=== PATIENT | male | born 1955 | race Hispanic/Latino ===

== ENCOUNTER 2019-12-24 09:32 | Inpatient (IN) | payer OTHER ==
[2019-12-24] MEDS ORDERED: Morphine 4 MG/ML VIAL ONE (10:31)
--- NOTE | 2019-12-24 10:49 | RAD ---
2 VIEWS LEFT HIP: Date: 12/24/2019 COMPARISON: None. HISTORY: Left hip pain after a fall coming down a ladder. FINDINGS: There appears to be slight impaction of the left femoral neck concerning for an impacted left femoral neck fracture. No dislocation is seen. IMPRESSION: Possible impacted left femoral neck fracture. POS: [facility]
--- NOTE | 2019-12-24 10:50 | RAD ---
SINGLE VIEW PELVIS: Date: 12/24/2019 HISTORY: Fall coming down a ladder with left hip pain. FINDINGS: Single view of the pelvis shows possible impaction of the left femoral neck which could represent an impacted femoral neck fracture. No degenerative changes are seen in either hip. No pelvic fractures a re seen. IMPRESSION: Possible impacted left femoral neck fracture. POS: [facility]
--- NOTE | 2019-12-24 10:58 | RAD ---
PORTABLE CHEST 1 VIEW: Date: 12/24/2019 Time: 1020 hours HISTORY: Fall, chest pain. FINDINGS: The heart size is borderline. The lungs are expanded without lobar consolidation, pneumothoraces, fra nk pulmonary edema, or pleural effusions. IMPRESSION: No acute process. POS: [facility]
[2019-12-24 11:26] LABS: #Eosinphils 0.2 thou/uL (0.0-0.7); #Lymphocytes 1.7 thou/uL (1.20-3.40); #Monocytes 0.5 thou/uL (0.11-0.59); #Neutrophils 6.6 thou/uL (1.40-6.50); %Basophils 0.3 % (0.0-1.0); %Eosinophils 2.5 % (0.0-10.0); %Lymphocytes 18.5 % (21.0-51.0); %Monocytes 5.6 % (0.0-10.0); %Neutrophils 73.1 % (42.0-75.0); Hemoglobin 13.5 g/dL (14.0-18.0); Mean Corpuscular HGB CONC 32.3 g/dL (32.0-36.0); Mean Corpuscular Volume 89.8 fL (78.0-98.0); Mean Platelet Volume 9.1 fL (7.4-10.4); Platelet Count 150 thou/uL (130-400); RBC Distribution Width 12.9 % (11.5-14.5); Red Blood Cell (RBC) Count 4.65 mill/uL (4.70-6.10)
[2019-12-24 11:30] LABS: PTT 28.5 SEC (22.9-36.1); Prothrombin Time 12.9 sec (12.0-14.7)
[2019-12-24 11:50] LABS: ALT (SGPT) 37 U/L (8-55); AST (SGOT) 30 U/L (5-34); Albumin 3.8 g/dL (3.4-4.8); Alkaline Phosphatase 80 U/L (40-110); Anion Gap 13 mmol/L (10-20); BUN (Urea Nitrogen) 16 mg/dL (8.4-25.7); Bilirubin, Total 0.6 mg/dL (0.2-1.2); Calc. Creatinine Clearance 0 mL/min (70-130); Calcium 9.2 mg/dL (7.8-10.44); Carbon Dioxide 29 mmol/L (23-31); Chloride 102 mmol/L (98-107); Estimated GFR-MDRD 84; Globulin 3.6 g/dL (2.4-3.5); Glucose 127 mg/dL (80-115); Potassium 4.5 mmol/L (3.5-5.1); Protein, Total 7.4 g/dL (5.8-8.1); Sodium 139 mmol/L (136-145)
[2019-12-24] MEDS ORDERED: Morphine 2 MG/ML SYRINGE SLOW IVP PRN (12:15)
[2019-12-24] MEDS ORDERED: TETANUS AND DIPHTHERIA TOX/PF 0.5 ML DISP.SYRIN IM ONE (12:15)
[2019-12-24] MEDS ORDERED: Ondansetron ODT 4 MG TAB PO PRN (12:15)
[2019-12-24] MEDS ORDERED: Dextrose 50% Abboject 50 ML SYRINGE SLOW IVP PRN (12:15)
[2019-12-24] MEDS ORDERED: Ondansetron PF 4 MG/2 ML Vial IVP PRN (12:15)
[2019-12-24] MEDS ORDERED: Dextrose 5% in Water 1,000 ML IV PRN (12:15)
[2019-12-24] MEDS ORDERED: hydrALAZINE 20 MG/ML VIAL SLOW IVP PRN (12:15)
[2019-12-24] MEDS ORDERED: Ketorolac Tromethamine 30 MG/ML VIAL ONE (12:27)
[2019-12-24] MEDS ORDERED: Ketorolac Tromethamine 30 MG/ML VIAL IVP SCH (12:30)
[2019-12-24 12:40] LABS: Magnesium 1.9 mg/dL (1.6-2.6); Phosphorus 2.9 mg/dL (2.3-4.7)
[2019-12-24 12:44] LABS: Acetaminophen Less than 6.0 mcg/mL (10.0-30.0); Alcohol Less than 10 mg/dL (Less than 10); Salicylate Less than 8.0 mg/dL (15.0-30.0)
[2019-12-24 13:09] LABS: Amphetamine Not Detected (NotDetected); Barbiturates Screen Not Detected (NotDetected); Benzodiazepine Screen Not Detected (NotDetected); Cocaine Metabolite Screen Not Detected (NotDetected); Medtox Control Line Valid? VALID (VALID); Medtox Reader # READER 1; Methadone Not Detected (NotDetected); Methamphetamine Not Detected (NotDetected); Opiate Screen Detected (NotDetected); Oxycodone Screen Not Detected (NotDetected); Phencyclidine (PCP) Not Detected (NotDetected); THC/Cannabinoid Screen Not Detected (NotDetected); Tricyclic Screen Not Detected (NotDetected)
[2019-12-24] MEDS: traMADol HCl 50 MG TAB PO SCH ×2 (13:15→18:26)
[2019-12-24] MEDS ORDERED: CEFAZOLIN 2 GM in Premix Bag 1 BAG IVPB SCH (13:15)
[2019-12-24 13:29] VITALS: BMI 39.4
[2019-12-24] MEDS: Sodium Chloride 0.9% 1,000 ML IV SCH (14:09)
[2019-12-24] MEDS: Acetaminophen 500 MG TAB PO SCH ×2 (14:19→18:26)
--- NOTE | 2019-12-24 14:26 | CON ---
DATE OF CONSULTATION: This is Michael Corral PA-C dictating a report for Alok Kim MD. HISTORY OF PRESENT ILLNESS: We were asked by the ER to see the patient. The patient is over here from [place] working. 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 He had significant pain on that left hip. He denies any other injuries, but he did sustain a fracture to the femoral neck. The patient is active. Other than some hypertension and cholesterol problems, he is healthy. He gets seen by a physician quarterly due to his job and other than the above-mentioned problems, he is a healthy individual. Unfortunately, states this is his first time in the hospital, first time fracture, and probably first-time surgery. Denies any numbness and tingling down the leg and he is moving that left lower extremity pretty well remarkably. He is lying on that left lower extremity, which feels more comfortable for him. PAST MEDICAL HISTORY: Hypertension and cholesterol. 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 No alcohol, nicotine, or illicit drug products whatsoever. ALLERGIES: PENICILLIN. CURRENT MEDICATIONS: He is on three hypertension medications and anticholesterol medication. I do not have this list at this time. FAMILY HISTORY: Noncontributory. PAST SURGICAL HISTORY: None. REVIEW OF SYSTEMS: He is a healthy individual. Denies any chest pain, shortness of breath, bowel or bladder problems, any other aches and pains other than the left hip currently. He does have some arthritic problems, but other than that, rest of review of systems negative. PHYSICAL EXAMINATION: GENERAL: Well-nourished, well-developed male, alert, pleasant, in no acute distress. Speech clear. Affect pleasant. Answers questions appropriately. He is alert and oriented x3. HEENT: Normal exam. Face symmetric. Tongue midline. NECK: Supple. Trachea midline. EXTREMITIES: Upper extremities, equal size, shape, and symmetry. Normal bulk and tone. Storm Door Maker strengths, movement, and sensations are equal. Respirations 16. No acute distress. PELVIS: No pain with rocking until I get down that left hip area. Again, he is lying on his left side, but he is able to move that left lower extremity. It is minutely shortened compared to the right, but he is able to move it fairly well. Sensations are intact to the both lower extremities as are DP PT pulses are equal. ASSESSMENT: 1. Fall. 2. Sustained left hip fracture. PLAN: The patient will probably need a hemiarthroplasty and I will discuss the x-ray findings with Dr. Kim and I let the patient know he can eat, we will probably end up doing this tomorrow as he would be quite late on the surgical schedule, the patient is amenable to this. I went over the risks and benefits of any surgical procedure with the patient bleeding, infection, scar tissue, blood clots, pulmonary vasculature in the leg, stroke, heart attack. Otherwise, he understands the surgeries, has been discussed the hemiarthroplasty. His questions and concerns have been answered and he is amenable to go forth with surgery. We will get him consented on the surgery schedule and his is not here yet, but if she has further questions before we do surgery, we will be happy to sit down and talk with them and address their questions and/or concerns. Job ID: [id number]
[2019-12-24] MEDS ORDERED: Ibuprofen 600 MG TAB PO PRN (16:00)
--- NOTE | 2019-12-24 16:10 | HP ---
. CONSULTS: Orthopedic Surgery, Dr. Kim. CHIEF COMPLAINT: Fall from ladder approximately two steps with left hip pain. HISTORY OF PRESENT ILLNESS: This is a 64-year-old gentleman who was at work when he was climbing down a ladder in which he thought he was at the bottom of the ladder. The patient lost his balance falling two steps high landing on his buttocks. The patient was also complained of left hip pain and was not able to ambulate after falling. The patient denies hitting his head or losing consciousness. The patient denies any other pain or injuries. The patient does have a small abrasion to his left elbow, but denies any pain. The patient was evaluated in the emergency room and was found to have a left femoral neck fracture. The patient was given a tetanus injection, morphine and Toradol for pain in the emergency room. REVIEW OF SYSTEMS: A 10-point review of systems is negative unless otherwise indicated in the above HPI. MEDICAL HISTORY: Hypertension. SURGICAL HISTORY: Denies. ALLERGIES: PENICILLIN. MEDICATIONS: 1. Amlodipine 10 mg p.o. daily. 2. Atorvastatin 40 mg p.o. at bedtime. 3. p.o. Daily. 4. Bystolic 10 mg p.o. daily. SOCIAL HISTORY: The patient is , lives in [place], former smoker for approximately 25 years. The patient quit approximately three years ago, denies any illicit drug use, and denies any alcohol use. PHYSICAL EXAMINATION: VITAL SIGNS: Temperature 97.9, pulse 61, respirations 18, SpO2 of 95% on room air, blood pressure 120/66. GENERAL: Well-appearing elderly male, lying in hospital bed, in no acute distress. HEENT: Head is atraumatic and normocephalic. Pupils are equal, midface stable, mucous membranes are moist, denies neck pain, normal range of motion of neck, trachea is midline. RESPIRATORY: Equal chest rise and fall. No wheezing, rales or rhonchi. Chest is atraumatic. ABDOMEN: Soft, nontender, nondistended. Active bowel sounds. PELVIS: Mild tenderness to the left hip. CARDIAC: Regular rate and regular rhythm. No murmurs. No pedal edema. EXTREMITIES: Moves all extremities. Small abrasion to left elbow, no obvious deformity. Normal range of motion, distal pulses 2+ in all extremities, pain to the left thigh and hip. NEUROLOGIC: No focal deficits. GCS 15. LABORATORY DATA: WBC 9.0, RBCs 4.65, hemoglobin 13.5, hematocrit 41.7, platelets 150. PT 12.9, INR 1.0, APTT 28.5. Sodium 139, potassium 4.5, chloride 102, carbon dioxide 29. BUN 16, creatinine 0.91, estimated GFR 84, glucose 127, calcium 9.2, phosphorus 2.9, magnesium 1.9. AST 30, ALT 37, alkaline phos 80. Drug screen positive for opioids, patient was given morphine before urine drug screen collection, plasma alcohol is less than 10. DIAGNOSTICS: 1. Pelvis x-ray, impression, possible impacted left femoral neck fracture, no pelvic fractures are seen. 2. Left hip x-ray, impression, possible impacted left femoral neck fracture. 3. Chest x-ray, impression, no acute cardiopulmonary process. IMPRESSION: 1. Status post fall from ladder approximately 2 feet. 2. Impacted left femoral neck fracture. 3. Acute traumatic pain. 4. History of hypertension. PLAN: We will admit the patient to the surgical floor. The patient will be placed on a regular diet and then n.p.o. after midnight as Orthopedic Surgery plans to take the patient to the OR for repair of his left hip tomorrow. The patient will be placed on IV maintenance fluids at midnight, normal saline at 120/hour. Pain control and bowel regimen. We will restart the patient's home hypertensive medications with hold parameters. We will have PT and OT evaluate and treat postop tomorrow. We will place a rehab screen as the patient may likely need inpatient rehab. The plan was discussed with Dr. Cheema, who agrees. Job ID: [id number]
[2019-12-24] MEDS: Senokot S 8.6-50 MG TAB PO SCH (19:47)
--- NOTE | 2019-12-25 01:43 | PRG ---
DATE OF SERVICE: 12/24/2019 SUBJECTIVE: The patient was seen this evening, lying in bed, with no signs of acute distress. He reported his pain is well controlled. He is tolerating a diet. He is n.p.o. at midnight for OR tomorrow with Dr. Kim. OBJECTIVE: VITAL SIGNS: Temperature 99.3, pulse 70, respirations 16, oxygen saturation 95% on room air, blood pressure 122/64. GENERAL: Well-appearing middle-aged male, lying in bed with no signs of acute distress. PULMONARY: Equal chest rise and fall. Clear breath sounds bilaterally. No signs of acute respiratory distress. ASSESSMENT: 1. Status post fall from ladder. 2. Left femoral neck fracture. 3. History of hypertension. PLAN: Continue current diet. N.p.o. at midnight. Normal saline 120 an hour. The patient is pending the OR tomorrow with Dr. Kim for fixation of his left femoral neck fracture. Postoperatively, he will work with Physical and Occupational Therapy and need placement in acute rehab facility. Job ID: [id number]
[2019-12-25] MEDS: Acetaminophen 500 MG TAB PO SCH ×4 (02:18→17:54)
[2019-12-25] MEDS: traMADol HCl 50 MG TAB PO SCH ×4 (02:18→17:55)
[2019-12-25 04:29] LABS: Hemoglobin 13.3 g/dL (14.0-18.0); Mean Corpuscular HGB CONC 32.4 g/dL (32.0-36.0); Mean Corpuscular Hemoglobin 29.8 pg (27.0-31.0); Mean Corpuscular Volume 91.8 fL (78.0-98.0); Mean Platelet Volume 9.5 fL (7.4-10.4); Platelet Count 138 thou/uL (130-400); RBC Distribution Width 12.9 % (11.5-14.5); Red Blood Cell (RBC) Count 4.48 mill/uL (4.70-6.10); White Blood Cell (WBC) Count 8.4 thou/uL (4.8-10.8)
[2019-12-25 04:30] LABS: Band 11 % (5-11); Eosinophils 4 % (0-10); Lymphocytes 16 % (21-51); MDiff Complete? YES; Monocytes 5 % (0-10); Neutrophil 62 % (42-75); Platelet Morphology Comment Appears Adequate
[2019-12-25 04:42] LABS: Anion Gap 12 mmol/L (10-20); BUN (Urea Nitrogen) 19 mg/dL (8.4-25.7); Calc. Creatinine Clearance 154 mL/min (70-130); Calcium 8.2 mg/dL (7.8-10.44); Carbon Dioxide 25 mmol/L (23-31); Chloride 104 mmol/L (98-107); Estimated GFR-MDRD Greater than 90; Glucose 113 mg/dL (80-115); Magnesium 1.9 mg/dL (1.6-2.6); Phosphorus 4.1 mg/dL (2.3-4.7); Potassium 4.2 mmol/L (3.5-5.1); Sodium 137 mmol/L (136-145)
[2019-12-25] MEDS: Sodium Chloride 0.9% 1,000 ML IV SCH ×2 (08:47→15:54)
[2019-12-25] MEDS: Amlodipine 10 MG TAB PO SCH (08:49)
[2019-12-25] MEDS: Polyethylene Glycol 3350 17 GM Packet PO SCH (08:50)
[2019-12-25] MEDS: Senokot S 8.6-50 MG TAB PO SCH ×2 (08:50→19:54)
[2019-12-25] MEDS ORDERED: Nebivolol HCl 5 MG TAB PO SCH (09:00)
[2019-12-25] MEDS ORDERED: Fentanyl 100 MCG/2 ML VIAL ONE ×3 (13:16→16:19)
[2019-12-25] MEDS ORDERED: Levofloxacin 500 mg/D5W 100 ml Premix Bag ONE ×2 (13:29→13:32)
[2019-12-25] MEDS ORDERED: Ciprofloxacin 0.2% Otic 1 DROP CON ONE (13:29)
[2019-12-25] MEDS ORDERED: Clindamycin/D5W 900 MG in Premix Bag 1 BAG IVPB SCH (13:30)
[2019-12-25] MEDS ORDERED: Clindamycin/D5W 900 mg/50 ml Premix Bag ONE (13:32)
[2019-12-25] MEDS ORDERED: Glycopyrrolate 0.2 MG/ML 5 ML SYRINGE ONE (15:29)
[2019-12-25] MEDS ORDERED: PROPOFOL 200 MG/20 ML VIAL ONE (15:29)
[2019-12-25] MEDS ORDERED: Dexamethasone 20 MG/5 ML VIAL ONE (15:29)
[2019-12-25] MEDS ORDERED: Rocuronium Bromide 10 MG/ML (10ML VIAL) ONE (15:29)
[2019-12-25] MEDS ORDERED: PHENYLEPHRINE-NS 100 MCG/ML 10 ML SYRINGE ONE (15:29)
[2019-12-25] MEDS ORDERED: Ondansetron PF 4 MG/2 ML Vial ONE (15:29)
[2019-12-25] MEDS ORDERED: EPHEDRINE 25 MG/5 ML SYRINGE ONE (15:29)
[2019-12-25] MEDS ORDERED: Promethazine HCl 25 MG/ML VIAL IM PRN (15:38)
[2019-12-25] MEDS ORDERED: Promethazine HCl 25 MG/ML VIAL SLOW IVP PRN (15:38)
[2019-12-25] MEDS ORDERED: Ondansetron HCl/PF 4 MG/2 ML Vial IVP PRN (15:38)
--- NOTE | 2019-12-25 15:52 | EKG ---
Test Reason : CP Blood Pressure : / mmHG Vent. Rate : 059 BPM Atrial Rate : 059 BPM P-R Int : 160 ms QRS Dur : 100 ms QT Int : 458 ms P-R-T Axes : 070 007 032 degrees QTc Int : 453 ms Sinus bradycardia Incomplete right bundle branch block Borderline ECG Confirmed by BRIGIDO MCGARRY DO ([id number]), editorial manager PENNY VALENTINO ([id number]) on 12/25/2019 3:51:36 PM Referred By: Confirmed By:BRIGIDO MCGARRY DO
[2019-12-25] MEDS: Clindamycin/D5W 900 MG in Premix Bag 1 BAG IVPB SCH ×2 (16:17→21:17)
--- NOTE | 2019-12-25 16:19 | RAD ---
LEFT HIP ONE VIEW: 12/25/19 HISTORY: Hip hemiarthroplasty. COMPARISON: Radiograph prior day. FINDINGS: Satisfactory appearance of the left hip hemiarthroplasty. IMPRESSION: Satisfactory postoperative appearance. POS: HOME
--- NOTE | 2019-12-25 16:20 | RAD ---
PELVIS ONE VIEW: 12/25/19 HISTORY: Left hip hemiarthroplasty. COMPARISON: Radiograph prior day. FINDINGS: Satisfactory postoperative left hip hemiarthroplasty. Obturator ring is intact. Expected postoperativ e gas and edema. IMPRESSION: Satisfactory postoperative appearance. POS: HOME
--- NOTE | 2019-12-25 16:47 | PRG ---
DATE OF SERVICE: 12/25/2019 SUBJECTIVE: Mr. 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 The patient sustained impacted left femoral neck fracture. He is awake and alert this morning, reporting adequate pain control. OBJECTIVE: VITAL SIGNS: Include blood pressure 116/65, pulse is 61, respiratory rate is 18, temperature 98.2 degrees Fahrenheit, and oxygen saturation 93% on room air. HEART: Reveals regular rate and rhythm. LUNGS: Clear to auscultation bilaterally. Breathing, regular and nonlabored. ABDOMEN: Soft, nontender, and nondistended. NEUROLOGIC: Reveals no focal deficits present. LABORATORY FINDINGS: Include a CBC with 8400 white blood cells, hemoglobin and hematocrit stable at 13.3 and 41.2 respectively. Platelet count is 138,000. Metabolic profile; sodium 137, potassium 4.2, chloride is 104, bicarb is 25, BUN 19, creatinine 0.82, glucose is 113, magnesium is 1.9, and phosphorus is 4.1. IMPRESSIONS: 1. Status post fall from a ladder. 2. Left hip fracture. 3. Acute hypomagnesemia. PLAN: Correct abnormal electrolytes. The patient is hemodynamically stable to proceed to surgery for repair of the hip fracture at the discretion of the Orthopedic Surgical Service. Job ID: [id number]
--- NOTE | 2019-12-25 22:54 | OP ---
DATE OF PROCEDURE: 12/25/2019 PROCEDURE PERFORMED: Left hip hemiarthroplasty. PREOPERATIVE DIAGNOSIS: Left femoral neck fracture. POSTOPERATIVE DIAGNOSIS: Left femoral neck fracture. COMPLICATIONS: None. ESTIMATED BLOOD LOSS: 150 mL. AIRPLANE RENTAL CLERK: Guerrero Linton PA-C IMPLANTS: DePuy bipolar hemiarthroplasty with a size 6 cemented stem, size +12 femoral head with a 49 mm bipolar shell. INDICATIONS FOR PROCEDURE: Mr. Suero is a 64-year-old male who fell from a ladder and fractured his left femoral neck. He had an impacted and shortened fracture. He was indicated for hemiarthroplasty of the hip after risks and benefits were reviewed. Alternatives of hemiarthroplasty were reviewed including total hip arthroplasty. He is aware that he may develop osteoarthritis of his acetabulum over time and may require revision to total hip arthroplasty in the future. He is also aware of instability, infection, pain, scarring, bleeding, nerve or vascular injury, DVT, PE, and others. He wanted to proceed. DESCRIPTION OF PROCEDURE: Mr. Suero was identified in the preoperative holding area. His correct extremity was marked. He was carried to the operating room. He was positioned supine. General anesthesia was induced. He was converted to the lateral decubitus position. At this point, we performed a posterior approach to the hip. We dissected down through the subcutaneous tissues to the fascia, which was opened. We then exposed the underlying short external rotators of the hip. We subperiosteally divided these from the proximal femur. There was obvious severely comminuted and displaced fracture. The fracture extended distally down to the lesser trochanter. The greater trochanter was fractured off the femoral shaft as well. We removed the femoral head and neck fragments. We cleared the acetabulum of bony material. We inspected the proximal femur at this point. We decided there was not enough stable bone to perform a press-fit stem. We decided to do a cemented stem at this point to ensure that there was stability of the hip. We then began reaming and broaching up to a size 6. We trialed off our size 6 stem. We then trialed with our +8.5 head. We decided to go up to a 12 head for leg length and stability. We removed our trial components. We thoroughly irrigated with copious lavage. We then placed our cement restrictor. At this point, we inserted our cement after mixing on the back table and placed our stem. We held the stem in an appropriate version until fully hardened. We then placed our final femoral head and bipolar shell. Again, we reduced the hip and took it through a range of motion. The hip was stable and there was a full leg length. Next, we thoroughly irrigated and repaired the greater trochanter with Ethibond sutures. #5 Ethibond sutures were used and passed through the bone in a [id number] fashion, restoring the alignment of the greater trochanter. Finally, we repaired the short external rotators in the capsule through drill holes in the proximal femur. At this point, we thoroughly irrigated with lavage. We then began closure. #2 Vicryl suture, 2-0 Vicryl suture, and syed were used. The patient was taken to the recovery room in good condition without complication. Job ID: [id number]
[2019-12-26] MEDS: traMADol HCl 50 MG TAB PO SCH ×4 (00:01→18:16)
[2019-12-26] MEDS: Acetaminophen 500 MG TAB PO SCH ×4 (00:01→18:16)
--- NOTE | 2019-12-26 00:20 | PRG ---
DATE OF SERVICE: 12/25/2019 SUBJECTIVE: The patient was seen this evening during rounds. He is postoperative day zero active fixation of a left femoral neck fracture. He reports pain is well controlled, voiding without difficulty. He is tolerating food. OBJECTIVE: VITAL SIGNS: Temperature 98.6, pulse 70, respirations 18, oxygen saturation 95% on 1 L nasal cannula, blood pressure 163/94. GENERAL: A well-appearing male, lying in bed with no signs of acute distress. PULMONARY: Equal chest rise and fall. No signs of acute respiratory distress. ASSESSMENT: 1. Status post fall from ladder. 2. Left femoral neck fracture, status post repair. 3. History of hypertension. PLAN: Continue current diet and pain regimen. Discontinue IV fluids. Restart home Bystolic with hold parameters. The patient to start working with Physical and Occupational Therapy tomorrow. We will continue to hold chemo, DVT prophylaxis today and consider starting it tomorrow after a repeat blood work in the morning. Job ID: [id number]
[2019-12-26 06:07] LABS: #Lymphocytes 0.9 thou/uL (1.20-3.40); #Monocytes 0.7 thou/uL (0.11-0.59); #Neutrophils 8.8 thou/uL (1.40-6.50); %Basophils 0.2 % (0.0-1.0); %Lymphocytes 8.5 % (21.0-51.0); %Monocytes 6.6 % (0.0-10.0); %Neutrophils 84.7 % (42.0-75.0); Hemoglobin 10.7 g/dL (14.0-18.0); Mean Corpuscular HGB CONC 33.1 g/dL (32.0-36.0); Mean Corpuscular Hemoglobin 29.9 pg (27.0-31.0); Mean Corpuscular Volume 90.4 fL (78.0-98.0); Mean Platelet Volume 9.3 fL (7.4-10.4); Platelet Count 122 thou/uL (130-400); RBC Distribution Width 12.7 % (11.5-14.5); Red Blood Cell (RBC) Count 3.57 mill/uL (4.70-6.10); White Blood Cell (WBC) Count 10.4 thou/uL (4.8-10.8)
[2019-12-26 06:30] LABS: Anion Gap 12 mmol/L (10-20); BUN (Urea Nitrogen) 16 mg/dL (8.4-25.7); Calc. Creatinine Clearance 150 mL/min (70-130); Calcium 7.7 mg/dL (7.8-10.44); Carbon Dioxide 28 mmol/L (23-31); Chloride 100 mmol/L (98-107); Estimated GFR-MDRD Greater than 90; Glucose 133 mg/dL (80-115); Magnesium 1.9 mg/dL (1.6-2.6); Phosphorus 4.6 mg/dL (2.3-4.7); Potassium 4.5 mmol/L (3.5-5.1); Sodium 135 mmol/L (136-145)
[2019-12-26] MEDS: Aspirin 81 mg Enteric Coated Tablet PO SCH ×2 (08:32→20:29)
[2019-12-26] MEDS: Amlodipine 10 MG TAB PO SCH (08:32)
[2019-12-26] MEDS: Nebivolol HCl 5 MG TAB PO SCH (08:33)
[2019-12-26] MEDS: Polyethylene Glycol 3350 17 GM Packet PO SCH (08:33)
[2019-12-26] MEDS: Cyclobenzaprine 10 MG TAB PO PRN ×2 (08:33→23:31)
[2019-12-26] MEDS: Senokot S 8.6-50 MG TAB PO SCH ×2 (08:35→20:28)
--- NOTE | 2019-12-26 17:58 | PRG ---
DATE OF SERVICE: 12/26/2019 SUBJECTIVE: The patient remains on the surgical floor. The patient is postop day 1 status post left hip hemiarthroplasty. The patient had no overnight events. The patient is able to walk with physical therapy using a walker. The patient's pain is well controlled at this time. The patient is tolerating a regular diet. The patient voices no concerns at this time. OBJECTIVE: VITAL SIGNS: Blood pressure 104/58, temperature 98.3, pulse 60, respirations 20, and SpO2 of 96% on room air. GENERAL: Well-appearing elderly male, awake and alert, in no distress, sitting up in the chair. HEENT: Head is atraumatic and normocephalic. RESPIRATORY: Good inspiratory and expiratory effort, respirations are even and nonlabored. ABDOMEN: Soft, nontender, and nondistended. EXTREMITIES: Moves all extremities, neurovascularly intact x4. Left hip dressing is clean, dry, and intact. NEUROLOGIC: No focal deficits. LABORATORY DATA: WBC 10.4, RBC 3.57, hemoglobin 10.7, hematocrit 32.2, and platelets 122. Sodium 135, potassium 4.5, chloride 100, BUN 16, creatinine 0.84, estimated GFR greater than 90, glucose 133, calcium 7.7, phosphorus 4.6, and magnesium 1.9. IMPRESSION: 1. Status post fall from ladder two steps. 2. Left hip fracture status post repair. PLAN: Continue physical and occupational therapy. Continue pain regimen. The patient will most likely be discharge home to [place] with his in the morning as long as his pain is continued to be well controlled. We will work on getting the patient outpatient physical therapy and a walker. Aspirin 81 mg b.i.d. for VTE prophylaxis. The patient was examined by Dr. Cheema during morning rounds. Job ID: [id number]
--- NOTE | 2019-12-27 01:58 | PRG ---
DATE OF SERVICE: 12/26/2019 SUBJECTIVE: The patient was seen this evening during rounds. He was resting comfortably and asleep with no signs of acute distress. Nursing reported no acute events. OBJECTIVE: VITAL SIGNS: Temperature 97.3, pulse 57, respirations 16, oxygen saturation 97% on room air, and blood pressure 135/72. ASSESSMENT: 1. Status post fall from ladder. 2. Left femoral neck fracture, status post repair. 3. History of hypertension. PLAN: Continue current diet and pain regimen. Continue physical and occupational therapy. The patient to be discharged home tomorrow. Job ID: [id number]
[2019-12-27 05:33] LABS: Anion Gap 14 mmol/L (10-20); BUN (Urea Nitrogen) 20 mg/dL (8.4-25.7); Calc. Creatinine Clearance 152 mL/min (70-130); Calcium 8.1 mg/dL (7.8-10.44); Carbon Dioxide 24 mmol/L (23-31); Chloride 102 mmol/L (98-107); Estimated GFR-MDRD Greater than 90; Glucose 111 mg/dL (80-115); Magnesium 2.1 mg/dL (1.6-2.6); Phosphorus 3.5 mg/dL (2.3-4.7); Potassium 4.6 mmol/L (3.5-5.1); Sodium 135 mmol/L (136-145)
[2019-12-27] MEDS: Acetaminophen 500 MG TAB PO SCH ×3 (05:55→11:49)
[2019-12-27] MEDS: traMADol HCl 50 MG TAB PO SCH ×3 (05:55→11:50)
[2019-12-27 05:57] LABS: Hemoglobin 10.2 g/dL (14.0-18.0); Mean Corpuscular HGB CONC 31.2 g/dL (32.0-36.0); Mean Corpuscular Hemoglobin 28.6 pg (27.0-31.0); Mean Corpuscular Volume 91.5 fL (78.0-98.0); Mean Platelet Volume 10.5 fL (7.4-10.4); Platelet Count 136 thou/uL (130-400); Red Blood Cell (RBC) Count 3.59 mill/uL (4.70-6.10); White Blood Cell (WBC) Count 9.4 thou/uL (4.8-10.8)
[2019-12-27 06:42] LABS: Band 4 % (5-11); Eosinophils 3 % (0-10); Lymphocytes 32 % (21-51); MDiff Complete? YES; Monocytes 6 % (0-10); Neutrophil 55 % (42-75)
[2019-12-27] MEDS: Amlodipine 10 MG TAB PO SCH (08:36)
[2019-12-27] MEDS: Nebivolol HCl 5 MG TAB PO SCH (08:37)
[2019-12-27] MEDS: Aspirin 81 mg Enteric Coated Tablet PO SCH (08:39)
[2019-12-27] MEDS: Senokot S 8.6-50 MG TAB PO SCH (08:43)
[2019-12-27] MEDS: Polyethylene Glycol 3350 17 GM Packet PO SCH (08:43)
[2019-12-27] MEDS: Cyclobenzaprine 10 MG TAB PO PRN (10:20)
[2019-12-27 11:10] VITALS: BP 132/69; TEMP 98.1
== END 2019-12-27 14:22 | disposition home or self-care (01) | DRG 470 ==
LOC: ERS 09:32 → SURG A 13:01
PROVIDERS: ADMIT Surgery; ATTEND Surgery
PROC: 0SRS0J9 Replacement of Left Hip Joint, Femoral Surface with Synthetic Substitute, Cemented, Open Approach (ICD-10-PCS; principal; 2019-12-25)
DX: S72.002A Fracture of unspecified part of neck of left femur, initial encounter for closed fracture (principal); E83.42 Hypomagnesemia; I10 Essential (primary) hypertension; W11.XXXA Fall on and from ladder, initial encounter; J44.9 Chronic obstructive pulmonary disease, unspecified; E78.00 Pure hypercholesterolemia, unspecified; E78.5 Hyperlipidemia, unspecified; Y93.9 Activity, unspecified; Y92.89 Other specified places as the place of occurrence of the external cause
CPT/HCPCS: 36415; 71045; 72170; 80048; 80053; 80306; 80307; 83735; 84100; 85007; 85025; 85027; 85610; 85730; 86850; 86900; 86901; 90714; 93005; 96374; 96375; C1713; C1781; G0390; J1100; J1885; J1956; J2270; J2405; J2704; J3010; J3490